=== PATIENT | female | born 1960 | race Caucasian/White ===

== ENCOUNTER 2017-02-23 07:59 | Day surgery (SDC) | payer MEDICAID, OTHER ==
[~2017-02-23] VITALS: Ht 160 cm; Wt 82.5 kg
[~2017-02-23 07:59] MED LIST: CA C1TAB60 PO; LANT3I SC; NOL20 PO; SITA1TAB7 PO
[2017-02-23 09:05] VITALS: Ht 160 cm; Wt 82.5 kg
[2017-02-23] MEDS ORDERED: LETR2.5T PO (09:14)
[2017-02-23 09:38] VITALS: BP 137/68; PULSE 77; RESP 15
[2017-02-23 10:27] VITALS: BP 119/63; PULSE 77; RESP 12
[2017-02-23] MEDS ORDERED: MIDAZOLAM 1 MG/ML 2 ML INJ ONE (10:29)
[2017-02-23] MEDS ORDERED: FENTAnyl 50 MCG/ML VIAL ONE (10:29)
--- NOTE | 2017-02-23 10:29 | OPPN ---
Date/Time of Note Date/Time of Note DATE: 02/23/17 TIME: 10:28 Operative Report Preoperative Diagnosis Screening Postoperative Diagnosis Diverticulosis of the colon Internal hemorrhoids Operation/Procedure Performed Colonoscopy Surgeon see signature line social service assistant None Anesthesia: moderate sedation Estimated blood loss: none Transfusion Required none Specimen None Grafts/Implants none Complications none JED PRESTON MD Feb 23, 2017 10:29
--- NOTE | 2017-02-23 11:10 | GILP ---
DATE OF PROCEDURE: NAME OF PROCEDURE: Colonoscopy. SURGEON: Jed Burgess MD. PREOPERATIVE DIAGNOSIS: Screening colonoscopy. POSTOPERATIVE DIAGNOSES: 1. Colonoscopy all the way to the cecum. 2. Diverticulosis of the colon. 3. Internal hemorrhoids. 4. No colon neoplasm was identified. INDICATION FOR THE PROCEDURE: Ms. Nay Gusman is a 56-year-old female patient who was scheduled for screening colonoscopy. The procedure and possible complications were well explained to the patient. The patient understood and consented to the procedure. DESCRIPTION OF PROCEDURE: Under the influence of fentanyl and Versed, the colonoscope was carefully introduced in the rectum and under direct vision, it was advanced all the way to the cecum. FINDINGS: The patient had diverticulosis of the colon. She also had internal hemorrhoids. No colo n neoplasm was identified. She tolerated the procedure very well and there was no complication from the procedure. At the end of the procedure, she was awake with stable vital signs and she was discharged home to the care of h er family. IMPRESSION: Please see postoperative diagnosis. PLAN: 1. High fiber diet. 2. Next screening colonoscopy in 10 years. Dictated By: JED RAMOS/JOSHUA Conf#: [id number] DID#: [id number]
--- NOTE | 2017-02-24 12:12 | CONS ---
DATE OF ADMISSION: 02/23/2017 DATE OF CONSULTATION: PREOPERATIVE GASTROENTEROLOGY Dear Dr. Lopez: I thank you very much for this kind referral. Ms. Nay Gusman is a 56-year-old female patient who has been referred to me for further evaluati on of change in the bowel habits. No past history of colon neoplasm. The patient never had screeni ng colonoscopy. Her appetite is good and she is not losing any weight. No upper abdominal pain, na usea or vomiting, not on nonsteroidal anti-inflammatory agents, status post cholecystectomy, no live r disease. Not a hypertensive. She is a diabetic. No heart disease, lung problem or kidney diseas e. She is status post surgery, radiation and chemotherapy for breast cancer. Nonsmoker. No alcoho l abuse, no family history of gastrointestinal tract neoplasm noted. ALLERGIES: NO DRUG ALLERGIES. MEDICATIONS: 1. Lantus insulin. 2. Janumet. 3. Letrozole. PHYSICAL EXAMINATION: GENERAL: She is 5 feet 3 inches tall and weighs 180 pounds, normal heart sounds. LUNGS: Clear. ABDOMEN: Soft. No masses. Normal bowel sounds. NEUROLOGIC: Normal exam. IMPRESSION: 1. Change in the bowel habit. 2. The patient never had screening colonoscopy. 3. Diabetes mellitus. 4. History of breast cancer. 5. Status post lumpectomy, radiation and chemotherapy. 6. Status post cholecystectomy. PLAN: Screening colonoscopy. The procedure and possible complications were well explained to the patient. She understands and co nsents to the procedure. I thank you once again. With warmest personal regards, Dictated By: JED RAMOS/JOSHUA Conf#: [id number] DID#: [id number]
== END 2017-02-23 11:39 | disposition home or self-care (01) ==
LOC: GIL 07:59
PROVIDERS: ATTEND Internal Medicine Gastroenterology
DX: Z12.11 Encounter for screening for malignant neoplasm of colon (principal); K57.90 Diverticulosis of intestine, part unspecified, without perforation or abscess without bleeding; K64.8 Other hemorrhoids; E11.9 Type 2 diabetes mellitus without complications; Z85.3 Personal history of malignant neoplasm of breast
CPT/HCPCS: 45378; 82962; J2250; J3010; Z7610